=== PATIENT | female | born 2005 | race Caucasian/White ===

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

== ENCOUNTER → 2023-01-06 | Outpatient (CLI) | payer OTHER ==
[2023-01-06 14:33] LABS: HIV 1&2 SCREEN NEGATIVE (NEGATIVE)
[2023-01-06 14:37] LABS: HEPATITIS C VIRUS ABY INDEX 0.13 INDEX (<0.8)
[2023-01-06 14:40] LABS: HEPATITIS B CORE ANTIBODY IGM NEGATIVE (NEGATIVE)
[2023-01-06 15:04] LABS: GC DNA AMPLIFICATION NEGATIVE (NEGATIVE)
[2023-01-06 15:08] LABS: GC DNA AMPLIFICATION NEGATIVE (NEGATIVE)
== END ==
LOC: M PLALAB 10:21
PROVIDERS: ATTEND Nurse Practitioner Family
DX: Z11.3 Encounter for screening for infections with a predominantly sexual mode of transmission (principal)

== ENCOUNTER → 2023-01-07 | Outpatient (CLI) | payer OTHER | LOC: M PLAIMG 06:40 | PROVIDERS: ATTEND Family Medicine | DX: S83.522D Sprain of posterior cruciate ligament of left knee, subsequent encounter (principal) ==

== ENCOUNTER 2023-02-03 11:59 | Observation (INO) | payer OTHER ==
[~2023-02-03] VITALS: Ht 167.6 cm; Wt 132.0 kg
[2023-02-03] MEDS ORDERED: NS 1,000 ML IV ONE ×3 (14:40→19:00)
[2023-02-03] MEDS ORDERED: KETOROLAC 30 MG/ML 1ML VIAL IV ONE (14:40)
[2023-02-03] MEDS ORDERED: ONDANSETRON 4MG 2ML VIAL IV ONE (14:40)
[2023-02-03 15:09] LABS: BASO % 0.2 % (0.0-1.0); EOS % 0.1 % (0.0-3.0); HEMATOCRIT 43.8 % (36.0-47.0); HEMOGLOBIN 14.7 g/dl (12.0-15.5); LYMPH # 2.2 10^3/uL (1.5-5.0); LYMPH % 16.7 % (24.0-44.0); MEAN CORPUSCULAR HEMOGLOBIN 28.3 pg (27.0-33.0); MEAN CORPUSCULAR HGB CONC 33.6 g/dl (32.0-36.5); MEAN CORPUSCULAR VOLUME 84.2 fl (80.0-96.0); MONO # 0.7 10^3/uL (0.0-0.8); MONO % 5.2 % (2.0-8.0); NEUTROPHILS % 77.4 % (36.0-66.0); PLATELET COUNT, AUTOMATED 380 10^3/uL (150-450); WHITE BLOOD COUNT 12.9 10^3/uL (4.0-10.0)
[2023-02-03 15:20] LABS: INR 1.09; PROTHROMBIN TIME 13.8 SECONDS (12.5-14.5)
[2023-02-03 15:45] LABS: CPK CREATINE PHOSPHOKINASE 50 U/L (34-145)
[2023-02-03 15:46] LABS: BLOOD UREA NITROGEN 7 MG/DL (9-23); CALCIUM LEVEL 9.5 MG/DL (8.5-10.1); CARBON DIOXIDE LEVEL 22 MMOL/L (20-31); CHLORIDE LEVEL 107 MMOL/L (98-107); CK-MB VALUE MASS < 1.0 NG/ML (<3.6); CREATININE FOR GFR 0.47 MG/DL (0.55-1.30); GLUCOSE, FASTING 81 MG/DL (60-100); POTASSIUM SERUM 3.9 MMOL/L (3.5-5.1); SODIUM LEVEL 140 MMOL/L (136-145)
[2023-02-03] MEDS ORDERED: MORPHINE 4 MG/ML 1ML VIAL IV ONE (16:20)
[2023-02-03] MEDS ORDERED: predniSONE 20 MG TAB PO ONE (16:50)
[2023-02-03] MEDS ORDERED: VERAPAMIL 40 MG TAB PO ONE (16:50)
[2023-02-03] MEDS ORDERED: methylPREDNISolone 125MG 2ML VIAL IV ONE (17:30)
[2023-02-03] MEDS ORDERED: MED REC IN PROGRESS XX SCH (17:35)
[2023-02-03 17:54] LABS: RSV AMPLIFICATION NEGATIVE (NEGATIVE)
[2023-02-03] MEDS ORDERED: PROV10TA PO (17:59)
[2023-02-03] MEDS ORDERED: FLUT15.820 NARES (17:59)
[2023-02-03] MEDS ORDERED: SUMAtriptan SUCCINATE 6MG/0.5ML VIAL SC ONE (18:00)
[2023-02-03] MEDS ORDERED: OMEP-173 PO (18:01)
[2023-02-03] MEDS ORDERED: ALBU2.5V10 NEB (18:10)
[2023-02-03] MEDS ORDERED: HOME MED LIST COMPLETE! XX SCH (18:15)
[2023-02-03 19:57] VITALS: BP 134/70; TEMP 96; O2SAT 96
[2023-02-03] MEDS: NS 1,000 ML IV SCH (20:31)
[2023-02-03] MEDS: KETOROLAC 30 MG/ML 1ML VIAL IV SCH (20:39)
[2023-02-03 21:00] VITALS: O2SAT 97
[2023-02-03] MEDS ORDERED: TOPIRAMATE (TopAMAX) 25 MG TAB PO SCH (21:00)
[2023-02-03] MEDS: PROMETHAZINE 25MG/ML 1ML VIAL IV PRN (21:23)
[2023-02-04] MEDS ORDERED: methylPREDNISolone 125MG 2ML VIAL IV SCH
[2023-02-04] MEDS: KETOROLAC 30 MG/ML 1ML VIAL IV SCH ×2 (02:50→08:28)
[2023-02-04 05:30] VITALS: BP 123/69; TEMP 96.3; O2SAT 97
[2023-02-04] MEDS: PROMETHAZINE 25MG/ML 1ML VIAL IV PRN (05:32)
[2023-02-04 06:04] LABS: BASO % 0.1 % (0.0-1.0); HEMATOCRIT 43.2 % (36.0-47.0); HEMOGLOBIN 14.5 g/dl (12.0-15.5); LYMPH # 1.1 10^3/uL (1.5-5.0); MEAN CORPUSCULAR HEMOGLOBIN 28.9 pg (27.0-33.0); MEAN CORPUSCULAR HGB CONC 33.6 g/dl (32.0-36.5); MEAN CORPUSCULAR VOLUME 86.2 fl (80.0-96.0); MONO # 0.1 10^3/uL (0.0-0.8); MONO % 0.9 % (2.0-8.0); NEUTROPHILS # 9.8 10^3/uL (1.5-8.5); NEUTROPHILS % 88.5 % (36.0-66.0); PLATELET COUNT, AUTOMATED 375 10^3/uL (150-450); RED BLOOD COUNT 5.01 10^6/uL (4.00-5.40); WHITE BLOOD COUNT 11.1 10^3/uL (4.0-10.0)
[2023-02-04 06:27] LABS: BLOOD UREA NITROGEN 8 MG/DL (9-23); CALCIUM LEVEL 8.9 MG/DL (8.5-10.1); CARBON DIOXIDE LEVEL 23 MMOL/L (20-31); CHLORIDE LEVEL 106 MMOL/L (98-107); CREATININE FOR GFR 0.46 MG/DL (0.55-1.30); GLUCOSE, FASTING 154 MG/DL (60-100); POTASSIUM SERUM 4.2 MMOL/L (3.5-5.1); SODIUM LEVEL 137 MMOL/L (136-145)
[2023-02-04] MEDS ORDERED: PRED10TA2 PO (07:38)
[2023-02-04] MEDS ORDERED: TOPA1TAB PO (07:38)
[2023-02-04] MEDS ORDERED: RIZA10TA64 PO (07:38)
[2023-02-04] MEDS ORDERED: SELF1KIT MC (07:38)
[2023-02-04] MEDS ORDERED: VERA40TA PO (07:38)
[2023-02-04] MEDS ORDERED: IBUP-1022 PO (07:40)
[2023-02-04 08:29] VITALS: BP 135/76
[2023-02-04] MEDS ORDERED: SUMAtriptan SUCCINATE 6MG/0.5ML VIAL SC ONE ×2 (08:40→14:00)
[2023-02-04] MEDS ORDERED: VERAPAMIL 40 MG TAB PO SCH (09:00)
[2023-02-04] MEDS ORDERED: FIOR1CAP PO (10:19)
[2023-02-04] MEDS ORDERED: methylPREDNISolone 125MG 2ML VIAL IV ONE (10:30)
[2023-02-04] MEDS ORDERED: RIZATRIPTAN BENZOATE 10 MG TAB PO ONE (12:00)
[2023-02-04] MEDS ORDERED: FIORICET TAB PO ONE (12:00)
[2023-02-04] MEDS ORDERED: ONDA4TAB6 PO (12:12)
[2023-02-04] MEDS ORDERED: PROMETHAZINE 25MG/ML 1ML VIAL IV ONE (13:00)
[2023-02-04] MEDS ORDERED: PROMETHAZINE 25MG/ML 1ML VIAL IV PRN (14:00)
[2023-02-04 14:33] VITALS: BP 134/71; TEMP 97.7; O2SAT 97
[2023-02-04] MEDS: NS 1,000 ML IV SCH (14:37)
== END 2023-02-04 14:52 | disposition home or self-care (01) ==
LOC: EDBD 11:59 → M ED 11:59 → M ED INP 12:00 → M MS4PR 19:57
PROVIDERS: ADMIT General Practice; ATTEND General Practice
DX: G43.409 Hemiplegic migraine, not intractable, without status migrainosus (principal); E78.00 Pure hypercholesterolemia, unspecified; J45.909 Unspecified asthma, uncomplicated; D64.9 Anemia, unspecified; F41.9 Anxiety disorder, unspecified; F32.A Depression, unspecified; E28.2 Polycystic ovarian syndrome; M54.9 Dorsalgia, unspecified; M42.00 Juvenile osteochondrosis of spine, site unspecified; Z79.52 Long term (current) use of systemic steroids; Z88.8 Allergy status to other drugs, medicaments and biological substances; Z79.899 Other long term (current) drug therapy
CPT/HCPCS: 36415; 70450; 70544; 70551; 71045; 80048; 82550; 82553; 84702; 85025; 85610; 85730; 86038; 86225; 86235; 87631; 93005; 93041; 94760; 96372; 96374; 96375; 96376; 97161; 97530; 99285; J1885; J2405; J2550; J2930; J3030; J7512

== ENCOUNTER → 2023-04-29 | Outpatient (CLI) | payer OTHER ==
[~2023-04-29] MED LIST changes: +FIOR1CAP PO; +FLUT15.820 NARES; +PRED10TA2 PO; +PROV10TA PO; +RIZA10TA64 PO; +SELF1KIT MC; +TOPA1TAB PO; +VERA40TA PO
== END ==
LOC: M WHC 08:40
PROVIDERS: ATTEND Nurse Practitioner
DX: N83.292 Other ovarian cyst, left side (principal); Q51.3 Bicornate uterus; N83.291 Other ovarian cyst, right side; R14.0 Abdominal distension (gaseous)

== ENCOUNTER → 2023-06-24 | Outpatient (CLI) | payer OTHER ==
[~2023-06-24] MED LIST changes: +ALBU8.5H; +ATOR40TA75 PO; +CEPH500C PO; +DULO1CAP5 PO; +ERGO500029 PO; +FLUTISP; +LEXA1TAB2 PO; +LORA-1041 PO; +MEDR5TAB3 PO; +MONT10TA97 PO; +PROBCAP14 PO; +RIZA10TA58 PO; +THERTAB52 PO; +TOPI200T7 PO; +TRI-TAB16 PO; +VERA100C4 PO; +[UNRECOGNIZED DRUG - CODE] PO
== END ==
LOC: M RAD 09:59
PROVIDERS: ATTEND Nurse Practitioner
DX: K42.9 Umbilical hernia without obstruction or gangrene (principal)

== ENCOUNTER → 2023-08-19 | Outpatient (CLI) | payer OTHER, SELFPAY ==
[~2023-08-19] MED LIST changes: +ONDA-282 PO; -ONDA4TAB6 PO
== END ==
LOC: M WHC 08:16
PROVIDERS: ATTEND Nurse Practitioner Family
DX: N83.201 Unspecified ovarian cyst, right side (principal)

== ENCOUNTER → 2024-01-06 | Outpatient (REF) | payer BC, OTHER | LOC: M SFHCPLAZ 13:02 | PROVIDERS: ATTEND Nurse Practitioner Family | DX: R39.15 Urgency of urination (principal) ==

== ENCOUNTER → 2024-03-05 | Outpatient (REF) | payer OTHER | LOC: M LAB REF 18:06 | PROVIDERS: ATTEND Student in an Organized Health Care Education/Training Program | DX: R30.0 Dysuria (principal) ==

== ENCOUNTER 2024-04-20 19:20 | Emergency (ER) | payer OTHER ==
[~2024-04-20] VITALS: Ht 170.2 cm; Wt 119.0 kg
[2024-04-20] MEDS: KETOROLAC 30 MG/ML 1ML VIAL IV ONE (20:09)
[2024-04-20 21:30] LABS: LIPASE 48 U/L (12-53)
[2024-04-20 21:32] LABS: ALBUMIN 4.1 G/DL (3.2-5.2); ALKALINE PHOSPHATASE 48 U/L (35-104); ALT/SGPT 49 U/L (7.0-40); AST/SGOT 18 U/L (<34); BILIRUBIN,DIRECT < 0.1 MG/DL (<0.4); BILIRUBIN,TOTAL 0.3 MG/DL (0.3-1.2); BLOOD UREA NITROGEN 8 MG/DL (9-23); CALCIUM LEVEL 9.7 MG/DL (8.5-10.1); CARBON DIOXIDE LEVEL 22 MMOL/L (20-31); CHLORIDE LEVEL 112 MMOL/L (98-107); CREATININE FOR GFR 0.64 MG/DL (0.55-1.30); GLOMERULAR FILTRATION RATE > 60.0 (>60); GLUCOSE, FASTING 96 MG/DL (60-100); POTASSIUM SERUM 3.9 MMOL/L (3.5-5.1); SODIUM LEVEL 142 MMOL/L (136-145)
[2024-04-20 21:37] LABS: HCG, SERUM QUALITATIVE NEGATIVE (NEGATIVE)
[2024-04-20 22:21] LABS: BASO # 0.1 10^3/uL (0.0-0.2); BASO % 0.9 % (0.0-1.0); EOS # 0.2 10^3/uL (0.0-0.5); EOS % 2.6 % (0.0-3.0); HEMATOCRIT 42.3 % (36.0-47.0); HEMOGLOBIN 14.4 g/dl (12.0-15.5); LYMPH # 3.4 10^3/uL (1.5-5.0); LYMPH % 38.7 % (24.0-44.0); MEAN CORPUSCULAR HEMOGLOBIN 29.3 pg (27.0-33.0); MONO # 0.6 10^3/uL (0.0-0.8); MONO % 6.5 % (2.0-8.0); NEUTROPHILS # 4.5 10^3/uL (1.5-8.5); PLATELET COUNT, AUTOMATED 322 10^3/uL (150-450); RED BLOOD COUNT 4.92 10^6/uL (4.00-5.40); WHITE BLOOD COUNT 8.9 10^3/uL (4.0-10.0)
[2024-04-20] MEDS: ONDANSETRON 4MG ORAL DISINTEGRATING TAB PO ONE (22:30)
[2024-04-20 23:15] LABS: KETONE, URINE AUTO RFX NEGATIVE (NEGATIVE); LEUKOCYTE ESTERASE UR AUTO RFX NEGATIVE (NEGATIVE); MUCUS, URINE RFX SMALL (NEGATIVE); NITRITE, URINE AUTO RFX NEGATIVE (NEGATIVE); RBC, URINE AUTO RFX 0 /HPF (0-3); SQUAM EPITHELIAL CELL UR AURFX 2 /HPF (0-6); WBC, URINE AUTO RFX 3 /HPF (0-3)
[2024-04-20 23:35] VITALS: TEMP 97.7
[2024-04-21] MEDS ORDERED: IBUP-1022 PO (00:53)
[2024-04-21] MEDS ORDERED: ONDA-282 PO (00:53)
[2024-04-21 01:08] VITALS: BP 123/64; O2SAT 100
[2024-04-21 02:17] LABS: Trichomonas vaginalis (AMP) NOT DETECTED (NEGATIVE)
[2024-04-21 02:39] LABS: GC DNA AMPLIFICATION NEGATIVE (NEGATIVE)
== END 2024-04-21 01:10 | disposition home or self-care (01) ==
LOC: M ED 19:20
DX: R10.32 Left lower quadrant pain (principal); Z79.899 Other long term (current) drug therapy; Z88.8 Allergy status to other drugs, medicaments and biological substances
CPT/HCPCS: 36415; 74176; 76856; 80048; 80076; 81001; 83690; 84703; 85025; 87661; 87810; 87850; 93976; 96374; 99284; J1885

== ENCOUNTER → 2024-09-28 | Outpatient (REF) | payer BC ==
[~2024-09-28] MED LIST changes: +TOPI-14 PO; -TOPI200T7 PO; -VERA100C4 PO; +VERA100C6 PO
[2024-10-03 14:57] LABS: HPV APTIMA Not Detected (Not Detected)
== END ==
LOC: M PLALAB 14:46
PROVIDERS: ATTEND Advanced Practice Midwife
DX: Z12.4 Encounter for screening for malignant neoplasm of cervix (principal); R87.610 Atypical squamous cells of undetermined significance on cytologic smear of cervix (ASC-US)
CPT/HCPCS: 87624; G0123

== ENCOUNTER → 2024-12-01 | Outpatient (CLI) | payer BC ==
[~2024-12-01] MED LIST changes: -IBUP-1022 PO; +IBUP600T42 PO
== END ==
LOC: M WHC 11:35
PROVIDERS: ATTEND Advanced Practice Midwife
DX: N83.202 Unspecified ovarian cyst, left side (principal); N83.201 Unspecified ovarian cyst, right side

== ENCOUNTER → 2024-12-07 | Outpatient (CLI) | payer BC ==
[~2024-12-07] MED LIST changes: +METHACHOLINE KIT (6 VIAL.NEB PREMIX) INH ONE
== END ==
LOC: M CARPUL 07:35
PROVIDERS: ATTEND Physician Assistant
DX: R06.02 Shortness of breath (principal)

== ENCOUNTER → 2024-12-13 | Outpatient (CLI) | payer BC ==
[~2024-12-13] MED LIST changes: -METHACHOLINE KIT (6 VIAL.NEB PREMIX) INH ONE
== END ==
LOC: M PLALAB 15:05
PROVIDERS: ATTEND Advanced Practice Midwife
DX: N83.201 Unspecified ovarian cyst, right side (principal)

== ENCOUNTER → 2025-01-12 | Outpatient (CLI) | payer BC | LOC: M WHC 10:04 | PROVIDERS: ATTEND Advanced Practice Midwife | DX: N83.201 Unspecified ovarian cyst, right side (principal) ==